=== PATIENT | female | born 1975 | race Two or more races ===

== ENCOUNTER 2022-09-21 10:15 | Inpatient (IN) | payer OTHER ==
[~2022-09-21] VITALS: Ht 157.5 cm; Wt 52.2 kg
[~2022-09-21 10:15] MED LIST: HYDROXYCHLOROQUINE PO
[2022-09-21] MEDS ORDERED: IRON325 MG PO (13:35)
[2022-09-25] MEDS ORDERED: HYDROXYCHLOROQ200 MG PO (08:23)
[2022-10-12] MEDS ORDERED: ACIDOPHILUS1 EAC3 PO (10:44)
== END 2022-10-19 16:18 | disposition home or self-care (01) | DRG 743 ==
LOC: ADM 10:15 → OB/GYN 09-24 10:15 → EDSTATUS 09-24 10:15 → CIR.AMB 09-24 10:15 → OB/GYN 10-15 16:37 → O/R 10-15 16:37 → OB/GYN 10-15 21:47
PROVIDERS: ADMIT Obstetrics & Gynecology Obstetrics; ATTEND Obstetrics & Gynecology Obstetrics
PROC: 0UT90ZZ Resection of Uterus, Open Approach (ICD-10-PCS; principal; 2022-10-15 16:00)
DX: D25.1 Intramural leiomyoma of uterus (principal); D25.0 Submucous leiomyoma of uterus; N80.00 Endometriosis of the uterus, unspecified

== ENCOUNTER 2022-09-23 08:55 | Inpatient (IN) | payer OTHER ==
[~2022-09-23] VITALS: Ht 157.5 cm; Wt 52.2 kg
[~2022-09-23 08:55] MED LIST changes: +IRON325 MG PO
[2022-09-25] MEDS ORDERED: HYDROXYCHLOROQ200 MG PO (08:23)
== END 2022-09-26 14:52 | disposition home or self-care (01) | DRG 761 ==
LOC: ER 08:55 → MEDI 09-24 19:45
PROVIDERS: ADMIT Internal Medicine; ATTEND Internal Medicine
PROC: 30233N1 Transfusion of Nonautologous Red Blood Cells into Peripheral Vein, Percutaneous Approach (ICD-10-PCS; principal; 2022-09-24)
DX: N93.8 Other specified abnormal uterine and vaginal bleeding (principal); D25.9 Leiomyoma of uterus, unspecified; D64.89 Other specified anemias